=== PATIENT | male | born 1995 | race Caucasian/White ===

== ENCOUNTER 2018-01-29 23:38 | Emergency (ER) | payer MEDICARE, MEDICAID, SELFPAY ==
[2018-01-29 23:40] VITALS: BP 131/71; PULSE 85; RESP 14; TEMP 36.4; O2SAT 100; BMI 24.2
--- NOTE | 2018-01-30 00:28 | ED.DEP ---
ED Disposition - Plan for ED Patient: Chief Complaint: Rash Instructions: ED Dermatitis Poison Valerie Prescriptions: Prednisone [Deltasone] 20 mg PO DAILY #10 tablet Referrals: Care Physician,No Primary [Primary Care Provider] -
[2018-01-30] MEDS: predniSONE 20 MG Tablet 60 MG PO (00:36)
--- NOTE | 2018-01-30 06:22 | ED.DCSUM_ITS ---
- ER Visit Summary Date of Service: 01/30/18 Chief Complaint: Rash History of Present Illness: The patient is a 22 M presenting with rash. This started on . He was fishing and later developed a rash on his trunk and upper extremities. It is diffusely itching. Feels like his previous poison valerie. He has tried soaps and topical medications with no improvement. Denies other complaints. Physical Examination: Vitals are stable. Patient is afebrile. Alert no acute distress. HEENT exam is unremarkable. Neck is supple. Lungs are clear and equal bilaterally. Heart is regular rate and rhythm Extremities are unremarkable. Skin is warm and dry. Maculopapular rash with linear distribution consistent with poison valerie No focal neurologic deficit. Remainder of exam is unremarkable. Emergency Department Course and Treatment: Patient is given prednisone. He is advised to take Benadryl for itching. Advised to follow-up with his primary care physician. Advised return ED if worsening complaints. Disposition: Discharge home Impression: Poison valerie This note was generated with [employer] dictation software. It may contain incorrect words, spelling, and punctuation that were not noted in review of the chart prior to signing ED Disposition - Plan for ED Patient: Disposition: Home or Assisted Living Chief Complaint: Rash Instructions: ED Dermatitis Poison Valerie Prescriptions: Prednisone [Deltasone] 20 mg PO DAILY #10 tablet Referrals: Care Physician,No Primary [Primary Care Provider] -
== END 2018-01-30 00:40 | disposition home or self-care (01) ==
LOC: ED 01-30 00:35
PROVIDERS: Emergency Provider Emergency Medicine
DX: L23.7 Allergic contact dermatitis due to plants, except food (principal); Z72.0 Tobacco use
CPT/HCPCS: 99283

== ENCOUNTER 2021-11-11 21:30 | Emergency (ER) | payer MEDICARE, MEDICAID, SELFPAY ==
[2021-11-11 21:31] VITALS: BP 126/76; PULSE 82; RESP 16; TEMP 36.6; O2SAT 100; BMI 23.0
--- NOTE | 2021-11-11 22:01 | EX.ED.VIS.EY ---
HPI History of Present Illness Chief Complaint: Eye Problem Informant: patient Narrative Narrative: Foreign body sensation left eye sometime this afternoon. Does not wear contacts or glasses. He works in a metal shop for safety goggles. After work felt something go in his eye. Exam other hair present states there is a dot on his eye that they noted. Denies any significant pain or any blurry vision last vision check was 2 years ago. Denies past medical history or any allergies. Prior similar symptoms: No PFSH PFSH Medical History no medical history Home Medications NK 11/11/21 [History Last Taken Unknown] Allergy/AdvReac Type Severity Reaction Status Date / Time No Known Allergies Allergy Verified 11/11/21 21:38 Social History Smoking Status: Never smoker ROS ROS ED Constitutional Constitutional ED: Denies chills, fever(s) or sweats Eyes Eyes: Reports other Details: Foreign body sensation left eye ; Denies change in vision ENT ENT ED: Denies dysphagia or sore throat Cardiovascular Cardiovascular: Denies chest pain, leg edema, palpitations or racing heartbeat Respiratory/Chest Respiratory/Chest: Denies cough, dyspnea or dyspnea on exertion Gastrointestinal Gastrointestinal: Denies abdominal pain, diarrhea, nausea or vomiting Genitourinary Genitourinary ED: Denies dysuria, hematuria or urinary frequency Musculoskeletal Musculoskeletal: Denies back pain, extremity pain or neck pain Integumentary Denies rash or wounds Neurologic Neurologic: Denies headache(s), paresthesias or weakness EXAM Physical Exam Const Vital Signs: 11/11/21 21:31 Temperature 97.9 F Temperature Source Temporal Pulse Rate 82 Respiratory Rate 16 Blood Pressure 126/76 H Blood Pressure Mean 92 Pulse Ox 100 Oxygen Delivery Method Room Air Positive well nourished and well developed General Appearance ED: well developed and NAD HEENT Reports moist mucous membranes normocephalic and atraumatic Eyes PERRL, EOMs intact bilaterally and conjunctivae normal Eyes Narrative: Visual acuity: 20/20 OD, 20/20 OS, 20/20 OU. Right eye normal. Left eye there is a corneal foreign body noted 2 o'clock position, there is mild erythema of the sclera inferiorly. Slit-lamp examination confirms a foreign body black speck. Moist Q-tip was ran along the eyelids along with everting eyelid with no foreign bodies. Neck no lymphadenopathy and supple General: Negative for tenderness Chest Wall Chest: Negative for tenderness Resp normal respiratory effort and normal air movement Effort and Inspection: symmetric chest movement; Negative for respiratory distress Cardio regular rate, regular rhythm and no murmurs Peripheral Pulses: pulses 2+ throughout GI normal to inspection, nondistended, normoactive bowel sounds and non-tender Palpation: Negative for guarding or rebound tenderness present Back/Spine no CVA tenderness and no thoracic nor lumbar tenderness Extremity normal to inspection General Extremety ED: Negative for edema or tenderness General Extremity: Negative for edema Neuro oriented x3 and no sensory deficits noted Sensorium / Orientation: awake and alert Skin no rashes or lesions noted and no wounds MDM MDM MDM Narrative Medical decision making narrative: Patient normal visual acuity. Tetracaine instilled to the left eye. Slit-lamp used, 1.5 inch 25-gauge needle and syringe used to remove the foreign body there is residual rust ring remaining. Fluorescein staining notes small defect from foreign body removal, there is no abrasions or ulcers. Antibiotic ointment provided to use twice a days given follow-up with [facility] for evaluation of residual rust ring. Discharge Plan Triage Chief Complaint: Eye Problem ED Provider: Edwin Bazzi Dx/Rx/DC Orders Clinical Impression: Acute foreign body of left cornea, Corneal rust ring of left eye Instructions: ED Corneal Foreign Body, Removed, ED RUST RING Prescriptions: No Action NK RF: 0 Primary Care Provider: Care Physician,No Primary Referrals: Sagrario Lobato MD [STAFF PHYSICIAN] - 1 Day Care Physician,No Primary [Primary Care Provider] - Activity Restrictions/Additional Instructions: Visual acuity normal corneal foreign body at 2 o'clock position removed with mild rust ring leftover. Use ointment as prescribed twice a day for 5 days follow-up with [facility] for evaluation. Disposition Disposition: Home, Self Care Discharge Date/Time: 11/11/21 22:35
[2021-11-11] MEDS: Fluorescein 1 MG STRIP 1 STRIP OPHTHALMIC (22:04)
[2021-11-11] MEDS: Tetracaine 0.5% Ophthalmic Bottle 1 DRP OPHTHALMIC (22:32)
[2021-11-11] MEDS: Erythromycin Ophthalmic (NSY) 1 GM OPTH.TUBE 1 APPLIC LEFT EYE (22:33)
[2021-11-11 22:34] VITALS: BP 124/68; PULSE 78; RESP 18
== END 2021-11-11 22:35 | disposition home or self-care (01) ==
PROVIDERS: Emergency Provider Emergency Medicine; Visit Provider Emergency Medicine
DX: T15.02XA Foreign body in cornea, left eye, initial encounter (principal)
CPT/HCPCS: 99283